=== PATIENT | female | born 1980 | race Caucasian/White ===

== ENCOUNTER 2024-07-26 08:34 | Outpatient (AMB) | payer BC, SELFPAY ==
[2024-07-26 08:41] VITALS: BP 102/70; PULSE 95; RESP 16; TEMP 36.6; O2SAT 97; BMI 29.0
--- NOTE | 2024-07-26 08:41 | GYNCLNT_ITS ---
Vital Signs 07/26/24 08:41 Height 1.52 m Height Method Stated Weight 67.302 kg Weight Measurement Method Standing Scale BMI 29.0 BP 102/70 Blood Pressure Source Automatic Cuff Blood Pressure Location Left Upper Arm Position Sitting Respiration 16 Pulse 95 Pulse Source Monitor Temp 97.8 F Temp Source Oral Pulse Oximetry (%) 97 Oxygen Delivery Method Room Air Allergies/Home Meds Allergies & Medications Allergies No Known Allergies Allergy (Verified 07/26/24 08:43) Medication Reconciliation No Known Home Medications 07/26/24 [History Confirmed 07/26/24] Intake Visit Data Collection New Patient or Established: New Patient (never been to [facility]) Reason for Visit:: annual wellness Seen by Clinical Staff ONLY (RN/MA): No Tax Form Preparer Required: No Do You Feel Safe at Home: Yes Authorities Contacted: N/A PCP or OBGYN visit in last 3 months: No Hx Now: No Are you currently on any form of Control: Yes Last menstrual period: 07/12/24 Pain Present Currently: No Pain Scale Used: Stoddard-Rodriguze/Numerical Pain scale:: 0 Smoking Status Smoking Status: Never smoker Lead Customer Service Representative history Lead Customer Service Representative History Menstrual regularity: regular Flow: normal Monthly: Yes How many days does period last: 5 Age at menarche: 8 Menopausal: No Currently sexually active: Yes Questionnaires Covid-19 Vaccine Questionnaire Has patient been vacinated for Covid-19 Have you been vacinated for Covid-19: No PHQ-9 PHQ-2 Over the last 2 weeks, how often have you been bothered by any of the following problems? 1. Little interest or pleasure in doing things: not at all 2. Feeling down, depressed, or hopeless: not at all Total score: 0 PHQ-9 3. Trouble falling or staying asleep, or sleeping too much: Not at all 4. Feeling tired or having little energy: Not at all 5. Poor appetite or overeating: Not at all 6. Feeling bad about yourself - or that you are a failure or have let yourself or your family down: Not at all 7. Trouble concentrating on things, such as reading the newspaper or watching television: Not at all 8. Moving or speaking so slowly that other people could have noticed? - Or the opposite - being so fidgety or restless that you have been moving around a lot more than usual: not at all 9. Thoughts that you would be better off or of hurting yourself in some way: Not at all Total score: 0 Source: Developed by Drs. Wellington Tan, Reyna Gonzales, Bertrand Lopez and colleagues, with an educational maribeth from [email or web address]. Depression screen completed yes Social History Living Situation History Marital Status: Lives With: Family Housing: House Housing Other:: Patient is employed.Her is out on [employer]. Tobacco History Smoking Status: Never smoker Second Hand Smoke Exposure: No Alcohol History Alcohol Intake: Never Substance Use History Substance Use: none Domestic Abuse History Do You Feel Safe at Home: Yes Past Medical History Past Medical History Have you ever been diagnosed with any of the following: Neurological Problems Meningitis: No Seizures: No Spina Bifida: Yes (Patient was born with spina bifida and had surgery for it) Migraine: No Spinal Cord Injury: Yes (Spina bifida) Cardiology Problems Atrial Fibrillation: No Angina: No Heart Murmur: No Deep Vein Thrombosis: No Hypertension: No Respiratory Problems Asthma: No Pulmonary Embolism: No Stomache/Intestinal Problems Celiac Disease: No Gall Bladder Disease: Yes (Patient's status post laparoscopic Cholecystectomy in 2022) Gastrointestinal Bleed: No Irritable Bowel: No Gastroesophageal Reflux Disease: No Obesity: Yes (Patient was on Ozempic and lost a total of 30 pounds recently) Genital/Urinary Problems Kidney Stones: No Reproductive Problems Breast Cancer: No Endometriosis: No Fibroids: No Genital Herpes: No Gonorrhea: No Pelvic Inflammatory Disease: No Polycystic Ovarian Syndrome: No Previous Pregnancies: Yes ( x 2 in past. Has a 4-year-old and 7-year-old son at home. ) Musculoskeletal Problems Arthritis: No Rheumatoid Arthritis: No Osteoporosis: No Head,Eye,Nose,Throat Problems Glaucoma: No Endocrine Problems Diabetes Mellitus Type 2: No Hyperthyroidism: No Hypothyroidism: No Systemic Lupus Erythematosus: No Blood Problems Anemia: No Clotting Problems: No Psychologic Problems Depression: No Anxiety: No Attention Deficit Disorder: No Other Problems Hospitalization: Yes (For x 2, for surgery for spina bifida ) Cosmetic Surgery: No Blood Transfusions: No Anesthesia Reactions: No Surgical History Bariatric Surgery: No Breast Surgery: No Cholecystectomy: Yes (2022) Additional Surgical History: History of x 2, last 1 with a tubal ligation. History of Present Illness HPI Narrative Patient is a very pleasant 44-year-old -0-0-2 who used to see me in [place] who presents for an annual exam. She has not released her records to me. She denies hot flashes night sweats abnormal uterine bleeding. She just presents for an annual exam. Review of Systems Constitutional Constitutional: Reports system reviewed and no additional complaints, except as documented Comments: No hot flashes no night sweats patient has regular menstrual cycles monthly they last 5 days they are not painful. No dyspareunia. No abnormal discharge. No urinary complaints. Exam General Limitations: no limitations General Appearance: alert, in no apparent distress, comfortable, cooperative, healthy appearing and well groomed Neck Neck exam: Present normal inspection, full ROM and trachea midline Chest Chest inspection: Present normal inspection and symmetric chest wall rise Resp Respiratory exam: Present normal lung sounds bilaterally Card Cardiovascular exam: Present regular rate, normal rhythm and normal heart sounds Abdominal Abdominal exam: Present soft and normal bowel sounds External exam: Present normal external exam Speculum exam: Present normal speculum exam Bimanual exam: Present normal bimanual exam Extremities Extremities exam: Present normal inspection and full ROM Psych Psychiatric exam: Present normal affect and normal mood Skin Skin exam: Present warm, dry, intact and normal color Assessment & Plan Diagnosis / Problem List (1) Women's annual routine gynecological examination: Status: Acute Plan: Annual wellness exam. Pap with reflex typing to HPV was performed breast exam done and encouraged. Mammogram was ordered. Patient was on Ozempic and lost 30 pounds. She has gained 15 pounds back. She is following up with her primary care Marlon Rome BEAUTY ADVISOR in [place]. She just recently had lab work. Follow-up in 1 year for a Pap and annual exam with mammogram. Additional Plan Follow Up: 1 Year Office Procedures OB Clinic LOC & Office Proc's Nursing/Assessment Patient Status: Initial/New Patient OB Clinic Nursing Assessment: Medication Reconciliation, Update PMH in EMR and Vital Signs OB Clinic Coordination of Care: Complex Care and Chronic Disease 1-5, Consent,records obtained, informed consent, Education Simp Pt/Fam, Lab and Imaging orders and Staff clarify orders Miscellaneous Interventions: Breast Exam and Pelvic/Pap Smear Set up New Patient Charge New Patient Point Assignment: 1149 New Patient Point Charge: BEAUTY ADVISOR Level 4 ([id number]) In Clinic Procedures Pap Smear: Yes FLOORING MACHINE OPERATOR: Papsmear Pap Smear Procedure Chaparone in room during procedure?: No Pre-op diagnosis general: Annual wellness check Post-op diagnosis procedure note: Same Procedure Notes:: Pap with co- typing to HPV was performed Papsmear completed: yes
== END 2024-07-26 09:08 | disposition home or self-care (01) ==
LOC: HODSOBC 08:34
PROVIDERS: Supervising Provider Obstetrics & Gynecology; Visit Provider Obstetrics & Gynecology
DX: Z01.419 Encounter for gynecological examination (general) (routine) without abnormal findings (principal); Z11.51 Encounter for screening for human papillomavirus (HPV)
CPT/HCPCS: 99204; Q0091; G0463

== ENCOUNTER → 2024-08-29 | Outpatient (CLI) | payer BC, SELFPAY ==
--- NOTE | 2024-08-29 11:45 | XR_ITS ---
Examination: Screening digital mammography, bilateral Computer aided detection 3-D breast Tomosynthesis, bilateral Date and time of exam: August 29, 2024 1139 hours Indication: Screening Technique: Nonmagnified MLO, CC views of the breasts to been obtained, reconstructed from 3-D Tomosynthesis images. R2 computer aided detection program utilized for evaluation of suspicious masses and/or abnormal calcifications. 3-D Tomosynthesis images obtained. Findings: The breasts are heterogeneously dense, which may obscure small masses 14 mm focal asymmetry 12:00 position right breast Benign calcifications Impression: BI-RADS Category 0: Incomplete: Need additional imaging evaluation 14 mm focal asymmetry 12:00 position right breast, recommend follow-up spot tomographic views of this asymmetry as well as right breast sonography to complete workup
== END | disposition home or self-care (01) ==
PROVIDERS: Referring Provider Obstetrics & Gynecology; Visit Provider Obstetrics & Gynecology
DX: Z12.31 Encounter for screening mammogram for malignant neoplasm of breast (principal); R92.8 Other abnormal and inconclusive findings on diagnostic imaging of breast; N64.89 Other specified disorders of breast
CPT/HCPCS: 77063; 77067

== ENCOUNTER → 2024-10-16 | Outpatient (CLI) | payer BC, SELFPAY ==
--- NOTE | 2024-10-16 13:59 | XR_ITS ---
Examination: Breast ultrasound, unilateral, right Date and time of exam: October 16, 2024 1434 hours INDICATIONS: Mammogram August 29, 2024 14 mm focal asymmetry 12:00 position right breast Technique: Real-time young scale ultrasonographic imaging performed right breast including all 4 quadrants as well as nipple retroareolar and axillary region. Findings: 12:00 cyst 3 x 3 mm 10:00 nodule lobular margins 7 x 7 mm Impression: BI-RADS Category 3: Probably benign findings Recommend 1 additional 6 month right breast sonogram follow-up to document stability of nodule described above
== END | disposition home or self-care (01) ==
LOC: CDIM 13:50
PROVIDERS: PCP Nurse Practitioner Family; Referring Provider Obstetrics & Gynecology; Visit Provider Obstetrics & Gynecology
DX: N63.11 Unspecified lump in the right breast, upper outer quadrant (principal)
CPT/HCPCS: 76641